=== PATIENT | female | born 1995 | race Caucasian/White ===

== ENCOUNTER 2018-07-23 14:26 | Inpatient (IN) | payer BC, OTHER ==
[~2018-07-23] VITALS: Ht 172.7 cm; Wt 63.5 kg
--- NOTE | 2018-07-23 17:50 | NUR ---
PREADMISSION Pt 23 y/o female admitted for etoh heroin methamphetamine withdrawal. Pt alert and oriented to name, place, and time. Perrla. Skin warm and moist to touch. Lung sounds clear bilaterally. Respirations even and unlabored. Appears disheveled and unkempt. Hair uncombed. Dirt under finger nails of both hands. The bottoms of both feet are covered with dirt. Ciwa=10 cows=8. CG=346/71 P=102 R=16 T=98.3 O2=96%ra. Explained unit rules to pt with acknowledgment.
--- NOTE | 2018-07-23 17:55 | NUR ---
ADMISSION Pt 23 y/o female admitted for etoh heroin methamphetamine withdrawal. Pt alert and oriented to name, place, and time. Perrla. Skin warm and moist to touch. Lung sounds clear bilaterally. Respirations even and unlabored. Appears disheveled and unkempt. Hair uncombed. Dirt under finger nails of both hands. The bottoms of both feet are covered with dirt. Ciwa=10 cows=8. JF=039/71 P=102 R=16 T=98.3 O2=96%ra. Pt came from sober living. States," I'm here because I want to live! I don't want to be a waste of space." Pt states, " I took on too many things at once." , further explaining," I started school and took too many classes. Then I bought a car so I can get to school. Then I needed supplies, food, etc, and so on. It all became overwhelming. So I turned to drugs." Pt states when she attempts to stop using substances on her own , it was unamanageable, and almost impossible, and states it's like"hell". Pt further explained when she attempted sobriety, she was surrounded with the wrong people. States her typical withdrawal signs are, " shakes, anxiety, chills, sweats, insomnia." Anxious and restless during assessment. Foot tapping and frequent position changes, from sitting on edge of chair, to the other edge of chair, and laying head on table. Hyperverbal with pressured speech. Irritable with responses, raising voice at times. Bilateral hand tremors. States is experiencing sweats. States has no pcp. aware with new orders for 5 day valium and 5 day subutex taper, both to begin on 07/24/18. 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 Stated," when I'm working as an escort, I start using heroin, meth, and alcohol more. It's when I try to get a job, I never make it to the job interviews, because I'm coming off these things. " Pt also stated has had legal issues regarding the heroin. States her only support is her mother and that even their relationship is drifting apart. Pt further explains that her mother seems exhausted with her multiple attempts at sobriety. Medical hx: Bipolar 2018 Substance hx: - vodka po 750mL/day x 2weeks ( 500mL/day x 6 months prior to current). Started @ 10 years old. Last used 750mL on 07/22/18 @1800 -heroin iv 1gm/ day x 1month. Started @16 years old. Last used 07/23/18 1gm @ 1400. -methamphetamine IV 0.5gm three times a week. Started @ 19 years old. Last used 07/23/18 @ 0200 0.5gm -Marijuana smoke 1 gm/ day x 1month. Started at 12 years old. Last used 1 gm on 07/23/18 @ 1500. Treatment hx: Sanjay 04/2018 Ivette 02/2018 [facility] 01/2018
[2018-07-23] MEDS ORDERED: THIAMINE HCL 200 MG/2 ML VIAL IM ONE (19:00)
[2018-07-23] MEDS ORDERED: DICYCLOMINE HCL 20 MG TABLET PO PRN (19:00)
[2018-07-23] MEDS ORDERED: LOPERAMIDE HCL 2 MG CAPSULE PO PRN ×2 (19:00)
[2018-07-23] MEDS ORDERED: ONDANSETRON 4 MG/2 ML VIAL IM PRN (19:00)
[2018-07-23] MEDS ORDERED: DIAZEPAM 5 MG TABLET PO PRN (19:00)
[2018-07-23] MEDS ORDERED: DIAZEPAM 10 MG TABLET PO PRN (19:00)
[2018-07-23] MEDS ORDERED: diphenhydrAMINE 50 MG CAPSULE PO PRN (19:00)
[2018-07-23] MEDS ORDERED: LORAZEPAM 2 MG/1 ML VIAL IM PRN (19:00)
[2018-07-23] MEDS ORDERED: MAGNESIUM HYDROXIDE 30 ML LIQUID UDC PO PRN (19:00)
[2018-07-23] MEDS ORDERED: BUPRENORPHINE HCL 2 MG TAB.SUBL SL PRN (19:00)
[2018-07-23] MEDS ORDERED: ONDANSETRON ODT 4 MG TAB.RAPDIS SL PRN (19:00)
[2018-07-23] MEDS ORDERED: CLONIDINE HCL 0.1 MG TABLET PO PRN (19:00)
[2018-07-23] MEDS ORDERED: MAG HYDROX/AL HYDROX/SIMETH 30 ML LIQUID UDC PO PRN (19:00)
[2018-07-23] MEDS ORDERED: FOLI1TAB16 PO (19:10)
[2018-07-23] MEDS ORDERED: HYDR50CA5 PO (19:10)
[2018-07-23] MEDS ORDERED: BUPR1FIL SL (19:10)
[2018-07-23] MEDS ORDERED: MULT1TAB73 PO (19:10)
[2018-07-23] MEDS ORDERED: CLON0.2T PO (19:10)
[2018-07-23] MEDS ORDERED: OXCA300T15 PO (19:10)
[2018-07-23] MEDS ORDERED: ONDA4TAB5 GT (19:10)
[2018-07-23] MEDS ORDERED: TRAZ300T2 PO (19:10)
[2018-07-23] MEDS ORDERED: NORE1TAB23 PO (19:10)
[2018-07-23] MEDS ORDERED: METH-406 PO (19:10)
--- NOTE | 2018-07-23 19:43 | NUR ---
START OF SHIFT Rcvd report from outgoing nurse. Pt is a 23 y/o female A/O to person, place, time, and purpose. Pt was admitted for medically supervised withdrawal from ETOH and Heroin. Pt was admitted 07/23 and was intoxicated upon admission. Pt presenting w/ anxiety, restlessness, flushing, hot flashes, chills, unkempt and disheveled appearance, and fine tremors. Pt also has a h/o methamphetamine use and states she has not slept in 4 days. Pt rcvd no PRN medications during previous shift. Last CIWA12 and COWS 12 @ 1600. Call light is within reach. Pt will continue to be monitored and needs met.
[2018-07-23 20:02] VITALS: BP 123/76
--- NOTE | 2018-07-23 20:03 | NUR ---
CIWA AND COWS ASSESSMENT CIWA 12 and COWS 12. Pt presenting w/ anxiety, restlessness, flushing, hot flashes, chills, unkempt and disheveled appearance, and fine tremors. V/S: T:98.2, P:99, RR:16, SPO2:100, BP:123/76.
[2018-07-23 20:17] LABS: BASOPHILS # (AUTO) 0.1 K/uL (0.0-8.0); BASOPHILS % (AUTO) 0.9 % (0.0-2.0); EOSINOPHILS % (AUTO) 0.4 % (0.0-7.0); HEMATOCRIT 38.2 % (31.2-41.9); HEMOGLOBIN 13.5 g/dL (10.9-14.3); LYMPHOCYTES # (AUTO) 3.3 K/uL (20.0-40.0); LYMPHOCYTES % (AUTO) 38.2 % (20.5-51.5); MEAN CORPUSCULAR HEMOGLOBIN 30.4 uug (24.7-32.8); MEAN CORPUSCULAR HGB CONC 35 g/dL (32.3-35.6); MEAN CORPUSCULAR VOLUME 85.9 fL (75.5-95.3); MONOCYTES # (AUTO) 0.9 K/uL (2.0-10.0); MONOCYTES % (AUTO) 9.9 % (0.0-11.0); NEUTROPHILS # (AUTO) 4.4 K/uL (1.8-8.9); NEUTROPHILS % (AUTO) 50.6 % (38.5-71.5); PLATELET COUNT (AUTO) 319 K/uL (179-408); RED BLOOD CELL COUNT(AUTO) 4.44 MIL/uL (3.63-4.92); WHITE BLOOD COUNT (AUTO) 8.7 K/uL (3.8-11.8)
[2018-07-23 20:17] LABS: *URINE HCG, QUAL NEGATIVE (NEGATIVE)
[2018-07-23 20:30] LABS: ALANINE AMINOTRANSFERASE 25 U/L (14-59); ALKALINE PHOSPHATASE 47 U/L (50-136); AMYLASE 39 U/L (25-115); ASPARTATE AMINOTRANSFERASE 19 U/L (15-37); BILIRUBIN,TOTAL 2.8 mg/dL (0.2-1.0); CARBON DIOXIDE 28 mmol/L (21-32); CHLORIDE 103 mmol/L (98-107); GLUCOSE 80 mg/dL (74-106); LIPASE 121 U/L (73-393); MAGNESIUM 1.8 mg/dL (1.8-2.4); POTASSIUM 3.7 mmol/L (3.5-5.1); UREA NITROGEN, BLOOD 13 mg/dL (7-18)
[2018-07-23 20:32] LABS: ETHANOL < 3 MG/DL (0-0)
[2018-07-23 20:45] LABS: *AMPHETAMINE, URINE POSITIVE (NEGATIVE); *BARBITURATE, URINE NEGATIVE (NEGATIVE); *CANNABINOID, URINE POSITIVE (NEGATIVE); *COCCAINE, URINE POSITIVE (NEGATIVE); *OPIATE, URINE POSITIVE (NEGATIVE); *PHENCYCLIDINE SCREEN,URINE NEGATIVE (NEGATIVE)
[2018-07-23 20:56] LABS: THYROID STIMULATING HORMONE 0.722 mIU/mL (0.358-3.740)
[2018-07-23] MEDS: DIAZEPAM 10 MG TABLET PO PRN (21:01)
[2018-07-23] MEDS: IBUPROFEN 600 MG TABLET PO PRN (21:01)
--- NOTE | 2018-07-23 21:02 | NUR ---
PRN VALIUM, BENADRYL, CLONIDINE, AND MOTRIN ADMINISTRATION Valium 10mg for CIWA of 12, Benadryl 50mg for sleep, Clonidine 0.1mg for anxiety, and Motrin 600mg for body aches were given. Will reassess pt in 1 hr.
--- NOTE | 2018-07-23 22:02 | NUR ---
PRN VALIUM, BENADRYL, CLONIDINE, AND MOTRIN REASSESSMENT Pt is in bed w/ her eyes closed. Pt's respirations are unlabored and even.
--- NOTE | 2018-07-24 00:06 | NUR ---
CIWA AND COWS DEFERRED Pt is in bed w/ her eyes closed. Pt's respirations are unlabored and even.
--- NOTE | 2018-07-24 04:11 | NUR ---
CIWA AND COWS DEFERRED Pt is in bed w/ her eyes closed. Pt's respirations are unlabored and even.
--- NOTE | 2018-07-24 07:22 | NUR ---
END OF SHIFT Endorsed pt to oncoming nurse. Pt is a 23 y/o female A/O to person, place, time, and purpose. Pt was admitted for medically supervised withdrawal from ETOH and Heroin. Pt to begin 5 day Valium and Subutex taper on 07/24.. Pt continued presenting w/ anxiety, restlessness, flushing, hot flashes, chills, unkempt and disheveled appearance, and fine tremors. Pt also has a h/o methamphetamine use and states she has not slept in 4 days. Pt denies any S/I or H/I. PRN Valium for CIWA of 12, Benadryl for sleep, Clonidine for anxiety, and Motrin for body aches were given and noted effective. Pts fluid intake was 1419ml and she slept for 9hrs. Last CIWA12 and COWS 12 @ 1999. Call light is within reach.
[2018-07-24 08:00] VITALS: BP 116/71
--- NOTE | 2018-07-24 08:00 | NUR ---
START OF SHIFT COWS CIWA ASSESSMENT Pt 23 y/o female admitted for etoh heroin meth withdrawal. Pt received in room on bed with eyes closed resting, but arousable to name. Pt alert and oriented to name, place, and time. Perrla. Skin warm and moist to touch. Respirations even and unlabored. Appears disheveled and unkempt. Clothes and food wrappings scattered throughout the room. Encouraged to maintain hygiene. Cows=12 ciwa=12 @0800. Anxious and restless. Pressured speech. Irritable and agitated. Bilateral hand tremors noted. Complaints of intermittent perspiration and chills. Also with complaints of generalized discomfort. It was reported that pt slept for 9 hours last night. Pt is on a 5 day valium and a 5 day subutex taper, both on day 1. Last cows=12 ciwa=12 @1999. Bed on lowest position with side rails x2 up for safety. Call light within reach.
[2018-07-24] MEDS: FOLIC ACID 1 MG TABLET PO SCH (08:58)
[2018-07-24] MEDS: DIAZEPAM 10 MG TABLET PO SCH ×3 (08:58→20:47)
[2018-07-24] MEDS: MULTIVITAMINS,THERAPEUTIC TABLET PO SCH (08:58)
[2018-07-24] MEDS: THIAMINE HCL 100 MG TABLET PO SCH (08:58)
[2018-07-24] MEDS: BUPRENORPHINE HCL 2 MG TAB.SUBL SL SCH ×4 (08:59→20:48)
[2018-07-24] MEDS ORDERED: 5 DAY TAPER VALIUM-SERENITY PROTOCOL PO PRN (09:00)
[2018-07-24] MEDS ORDERED: 5 DAY TAPER BUPRENORPHINE -SERENITY PROTOCOL SL PRN (09:00)
[2018-07-24] MEDS ORDERED: TUBERCULIN,PURIF.PROT.DERIV. 5 TU/0.1 ML TEST ID ONE (09:00)
[2018-07-24 12:00] VITALS: BP 110/60
[2018-07-24] MEDS: IBUPROFEN 600 MG TABLET PO PRN ×2 (12:44→20:47)
[2018-07-24] MEDS: METHOCARBAMOL 750 MG TABLET PO PRN (12:44)
[2018-07-24] MEDS: DIAZEPAM 10 MG TABLET PO PRN (12:44)
--- NOTE | 2018-07-24 12:47 | NUR ---
PRN ROBAXIN MOTRIN Complaints of body aches 03/16 and generalized pain 02/14. Motrin po prn per MD order given. Robaxin po prn per MD order given. Addendum: 07/24/18 at 1300 by RONNIE GRAY RN additional ciwa =12. Bilateral hand tremors noted. Anxious and restless. Pressured speech. Irritable and agitated. Complaints of generalized body pains. Valium 10mg po prn per MD order given.
[2018-07-24 16:00] VITALS: BP 105/63
--- NOTE | 2018-07-24 16:00 | NUR ---
COWS CIWA ASSESSMENT cows=11 ciwa=12. Anxious and restless. Pressured speech. Bilateral hand tremors noted. Irritable. Not able to lay still. Complaints of intermittent perspiration and chills. Complaints of generalized discomfort.
[2018-07-24] MEDS: OXCARBAZEPINE 300 MG TABLET PO SCH (16:14)
[2018-07-24] MEDS ORDERED: NEOMY/BACITRA/POLYMYXIN B OINT UD PACKET TP PRN (16:45)
[2018-07-24] MEDS ORDERED: NEOMY/BACITRAC/POLYMI OINT 28.35 GM TUBE TP PRN (17:30)
--- NOTE | 2018-07-24 18:38 | NUR ---
END OF SHIFT Pt 23 y/o female admitted for etoh heroin meth withdrawal. Pt alert and oriented to name, place, and time. Perrla. Skin warm and moist to touch. Respirations even and unlabored. Appears disheveled and unkempt. Hair uncombed. Food and empty drink bottles scattered throughout the room. Encouraged to maintain hygiene. Anxious and restless. Pressured speech. Bilateral hand tremors noted. Fidgety. Pacing. Hyperverbal. Complaints of generalized discomfort. Isolative to room with no peer interaction. Pt did not attend group activity. Last cows=10 ciwa=11 @1600. Pt is on a 5 day valium taper and is on day 1. Pt also on 5 day subutex taper and is on day 1. Bed on lowest position with side rails x2 up for safety. Call light within reach.
--- NOTE | 2018-07-24 19:30 | NUR ---
Start of shift note Received report from day shift nurse. Patient is a 23 year old female admitted for ETOH and Heroin withdrawal . Patient is on 5 day Subutex and 5 day Valium taper. Patient was given PRN Valium. X-ray was done due to back pain. X-ray result was negative. Last COWS 11 and CIWA 10. Patient in group at this time. Patient's room dirty and odorous. Safety measures in place. Will continue to monitor
[2018-07-24 20:00] VITALS: BP 119/88
--- NOTE | 2018-07-24 20:00 | NUR ---
COWS and CIWA assessment Patient reports anxiety, restlessness, restless legs, runny nose, abdominal cramping, back pain, muscle aches, headache, hot and cold sweats. COWS 14 and CIWA 12.
[2018-07-24] MEDS: TRAZODONE 100 MG TABLET PO SCH (20:47)
--- NOTE | 2018-07-24 20:47 | NUR ---
PRN Motrin administration Patient c/o back pain and headache. Will monitor for effectiveness
--- NOTE | 2018-07-24 21:47 | NUR ---
PRN Motrin re-assessment Patient reports relief from Motrin. Patient states she feels much better.
[2018-07-25] VITALS: BP 124/72
--- NOTE | 2018-07-25 | NUR ---
COWS and CIWA deferred Patient lying in bed with eyes closed. Respiration even and unlabored. Will continue to monitor.
[2018-07-25 04:00] VITALS: BP 110/70
--- NOTE | 2018-07-25 04:00 | NUR ---
COWS and CIWA deferred Patient lying in bed with eyes closed. Respiration even and unlabored. Will continue to monitor.
--- NOTE | 2018-07-25 07:21 | NUR ---
End of shift note Patient slept 6 hours. Fluid intake 1,799 ml. Voided x 4. No BM. Scheduled taper and medication given as ordered, tolerated well and no adverse reaction noted. Patient compliant with medication and treatment plan. Patient socializes with other resident and staff. Patient was given PRN Motrin. Safety measures in place. Will continue to monitor. Last COWS 14 and CIWA 12.
--- NOTE | 2018-07-25 07:30 | NUR ---
START OF SHIFT Endorse rcvd from ongoing nurse, client is in room, lying on her L side, she sounds asleep, easy to awaken, RR 16, even, non-labored. Client is admitted for medically supervised alcohol and opioid withdrawal. Last CIWA 14 @ 1999. PRN Motrin 600mg PO for body aches, she slept 6 hrs. Call light within reach. Will continue to monitor.
[2018-07-25 07:51] LABS: CREATININE 0.6 mg/dL (0.6-1.3); POTASSIUM 3.9 mmol/L (3.5-5.1); TOTAL PROTEIN, SERUM 6.1 g/dL (6.4-8.2)
[2018-07-25 08:04] VITALS: BP 94/60
[2018-07-25] MEDS: THIAMINE HCL 100 MG TABLET PO SCH (09:41)
[2018-07-25] MEDS: FOLIC ACID 1 MG TABLET PO SCH (09:41)
[2018-07-25] MEDS: MULTIVITAMINS,THERAPEUTIC TABLET PO SCH (09:41)
[2018-07-25] MEDS: BUPRENORPHINE HCL 2 MG TAB.SUBL SL SCH ×3 (09:41→22:05)
[2018-07-25] MEDS: OXCARBAZEPINE 300 MG TABLET PO SCH ×2 (09:41→16:12)
[2018-07-25] MEDS: DIAZEPAM 5 MG TABLET PO SCH ×4 (09:41→22:05)
--- NOTE | 2018-07-25 09:41 | NUR ---
CIWA 14 / 14 Client is in room, she is a/o x 4, she presents with anxious mood, flat affect, flushed facial skin, enlarged pupils, and difficulty concentrating. Client report abdominal cramps, agitation, anxiety, chills, clammy skin, difficulty thinking clearly, fatigue, tremors, inability to sleep, generalized body aches, restless legs, and runny nose. Schedule Valium 5mg PO, Subutex 4mg SL administered. Will continue to monitor. Call light within reach.
[2018-07-25 12:55] VITALS: BP 98/59
--- NOTE | 2018-07-25 13:14 | NUR ---
CIWA /COWS deferred client too sedated to assess. Valium 4mg PO help. MD and CN notified.
--- NOTE | 2018-07-25 14:46 | NUR ---
Therapist prompted client to attend group therapy sessions.
[2018-07-25 16:17] VITALS: BP 102/65
--- NOTE | 2018-07-25 19:35 | NUR ---
END OF SHIFT Endorse client to incoming nurse, client is in room, a/o x 4. Client continues to present with anxious mood, flat affect, agitation, flushed facial skin, difficulty concentrating, yawning, runny nose, and watery eyes. Client is on 2nd of 5 day Valium / 5 day Subutex taper. Last CIWA 14 / 14 @ 1600. Client does not attend group therapy, but is compliant with medication taper medication. Client consumed 50% of meals. Adequate PO fluid intake 1800mL, void x 2. Ophelia precautions. Call light within reach.
--- NOTE | 2018-07-25 19:41 | NUR ---
START OF SHIFT NOTE Rcvd report from outgoing nurse. Pt is a 23 y/o female A/O to person, place, time, and purpose. Pt was admitted for medically supervised withdrawal from ETOH and Opiates. Pt is on day 2 of a 5 day Subutex and Valium taper. Pt has been presenting w/ lethargy, flushing, sweats, fine tremors, and anxiety. Pt has spent the majority of the day in her room in bed. Pt rcvd no PRN medications during previous shift. Last CIWA 14 and COWS 14 @ 1600. Call light is within reach. Pt will continue to be monitored and need met.
[2018-07-25 20:11] VITALS: BP 92/53
--- NOTE | 2018-07-25 20:15 | NUR ---
CIWA AND COWS ASSESSMENT CIWA 12 and COWS 12. Pt has been presenting w/ lethargy, flushing, sweats, fine tremors, and anxiety. V/S: T:98.1, P:83, RR:16, SPO2:97, BP:92/53
[2018-07-25] MEDS: TRAZODONE 100 MG TABLET PO SCH (22:05)
--- NOTE | 2018-07-26 00:06 | NUR ---
CIWA AND COWS DEFERRED Pt is in bed w/ her eyes closed. Pt's respirations are unlabored and even.
--- NOTE | 2018-07-26 04:12 | NUR ---
CIWA AND COWS DEFERRED Pt is in bed w/ her eyes closed. Pt's respirations are unlabored and even.
--- NOTE | 2018-07-26 07:11 | NUR ---
END OF SHIFT NOTE Endorsed pt to oncoming nurse. Pt is a 23 y/o female A/O to person, place, time, and purpose. Pt was admitted for medically supervised withdrawal from ETOH and Opiates. Pt completed day 2 of a 5 day Subutex and Valium taper. Pt continued presenting w/ lethargy, flushing, sweats, fine tremors, and anxiety. Pt has spent the majority of the shift in her room in bed. Pt denies any S/I or H/I. Pt rcvd no PRN medications during shift. Pt's fluid intake was 355ml and she slept for 11hrs. Last CIWA 12 and COWS 12 @ 1999. Call light is within reach.
--- NOTE | 2018-07-26 07:30 | NUR ---
start of shift note: received pt from night stocker nurse, pt is in stable condition at this time no s/s of pain or discomfort at this time, pt is admitted to [facility] for opiate/benzo/meth withdrawal/dependence. pt's last documented cows 12 and ciwa 12, pt slept for 11 hours. will continue to monitor pt for any changes and continue to meet pt's needs
[2018-07-26] MEDS ORDERED: BUPRENORPHINE HCL 2 MG TAB.SUBL SL SCH (09:00)
--- NOTE | 2018-07-26 09:00 | NUR ---
cows/ciwa: 11 and 6 pt is noted with moderate body aches and nasal stuffiness, pt with an episode of yawing and irritability.
[2018-07-26] MEDS: FOLIC ACID 1 MG TABLET PO SCH (09:01)
[2018-07-26] MEDS: THIAMINE HCL 100 MG TABLET PO SCH (09:01)
[2018-07-26] MEDS: MULTIVITAMINS,THERAPEUTIC TABLET PO SCH (09:01)
[2018-07-26] MEDS: OXCARBAZEPINE 300 MG TABLET PO SCH ×2 (09:01→17:00)
[2018-07-26] MEDS: DIAZEPAM 5 MG TABLET PO SCH ×3 (09:02→20:22)
[2018-07-26 11:00] VITALS: BP 100/64
[2018-07-26 12:42] VITALS: BP 110/60
--- NOTE | 2018-07-26 13:00 | NUR ---
COWS AND CIWA: 9 and 6, pt is in and out of sleep, mild sweats and body aches noted with 89 heart rate.
[2018-07-26] MEDS: BUPRENORPHINE HCL 2 MG TAB.SUBL SL SCH ×2 (15:00→20:23)
[2018-07-26 15:07] LABS: HEPATITIS B SURFACE AG Negative (Negative)
[2018-07-26 18:31] VITALS: BP 112/66
--- NOTE | 2018-07-26 18:37 | NUR ---
end of shift note: pt is in stable condition at this time, pt is sleeping pt is inactive and has been sleeping in bed majority of the shift, pt did not receive 1500 and 1700 medications. pt is odorous and disheveled and has not left her room throughout the shift. last documented cows and ciwa is 9 and 6, pt has a resting heart rate of 80-90's. pt has a poor PO intake, will encourage pt to join activities and groups. will endorse pt to maintenance supervisor 2nd shift nurse.
--- NOTE | 2018-07-26 19:30 | NUR ---
Start of shift note Received report from day shift nurse. Patient is a 23 year old female admitted for ETOH and Opiate withdrawal. Patient was sleeping most of the day. Patient did not receive PRN medication . Last COWS 9 and CIWA 6. Patient is anxious, restless, irritable and agitated. Patient wants to go down to smoke. Patient's room dirty, garbage around, dirty linen, refused change and clothes thrown on floor. Patient is disheveled and odorous. Safety measures in place. Will continue to monitor.
[2018-07-26 20:00] VITALS: BP 123/96
--- NOTE | 2018-07-26 20:00 | NUR ---
COWS and CIWA assessment Patient reports increased anxiety, restlessness, irritable, agitation, abdominal cramping, stuffy nose and intermittent perspiration COWS 11 and CIWA 9
--- NOTE | 2018-07-26 20:12 | NUR ---
MEG Poe and Vistaril administration Patient reports anxiety and c/o generalized body aches . Will monitor effectiveness Addendum: 07/27/18 at 0348 by MAURICE ROBBINS LVN error:this charting is for another patient
[2018-07-26] MEDS: TRAZODONE 100 MG TABLET PO SCH (20:22)
[2018-07-26] MEDS: METHOCARBAMOL 750 MG TABLET PO PRN (20:22)
--- NOTE | 2018-07-26 20:22 | NUR ---
PRN Robaxin administration Patient was c/o back. Will monitor for effectiveness
--- NOTE | 2018-07-26 21:22 | NUR ---
PRN Robaxin re-assessment Patient states Robaxin was helpful and effective. Pain is lessened. Will continue to monitor
[2018-07-27] VITALS: BP 114/75
--- NOTE | 2018-07-27 | NUR ---
COWS and CIWA deferred Patient lying in bed with eyes closed. Respiration even and unlabored. Will continue to monitor
[2018-07-27 04:00] VITALS: BP 112/77
--- NOTE | 2018-07-27 04:00 | NUR ---
COWS and CIWA deferred Patient lying in bed with eyes closed. Respiration even and unlabored. Will continue to monitor
--- NOTE | 2018-07-27 07:17 | NUR ---
End of shift note Patient alert and oriented x 4. Patient was anxious, restless, irritable and agitated. Patient compliant with medication . Patient was c/o back pain. PRN Robaxin was given. Patient was asleep most of the shift. Will continue to monitor. Patient slept 8 hours. Fluid intake 1,402 ml. Voided x 5 . BM x 1 . Last COWS 11 and CIWA 9
[2018-07-27 08:00] VITALS: BP 96/60
--- NOTE | 2018-07-27 08:02 | NUR ---
START OF SHIFT: Received Pt laying in bed with eyes closed. She is easy to awake and states "please let me sleep some more, and come back in a little while". Will attempt to assess Pt later and medicate as ordered. Bed locked and low. Call gonzalez in reach. Will continue to monitor and offer support.
[2018-07-27] MEDS: FOLIC ACID 1 MG TABLET PO SCH (09:00)
[2018-07-27] MEDS: MULTIVITAMINS,THERAPEUTIC TABLET PO SCH (09:00)
[2018-07-27] MEDS: DIAZEPAM 5 MG TABLET PO SCH ×2 (09:00→20:08)
[2018-07-27] MEDS: BUPRENORPHINE HCL 2 MG TAB.SUBL SL SCH ×3 (09:00→21:57)
[2018-07-27] MEDS: THIAMINE HCL 100 MG TABLET PO SCH (09:00)
[2018-07-27] MEDS: OXCARBAZEPINE 300 MG TABLET PO SCH ×2 (09:00→16:49)
--- NOTE | 2018-07-27 10:15 | NUR ---
COWS and CIWA deferred. AM medications held as pt is asleep. made aware. Safety measures in place.Will continue to monitor.
[2018-07-27 12:00] VITALS: BP 96/60
--- NOTE | 2018-07-27 13:00 | NUR ---
Pt continues to sleep and asked to be left alone.Safety measures in place. Will continue to monitor and offer support. Addendum: 07/27/18 at 1836 by TRISTAN SAHA RN Jhony leach at noon.
--- NOTE | 2018-07-27 15:45 | NUR ---
Pt is A/O X 4. She presents disheveled with smeared make up on face and she is odorous. Encouraged a shower to promote wellness. She reports body aches,fatigue and irritability. COWS 6 CIWA 7. Will administer medications as ordered.
[2018-07-27 16:00] VITALS: BP 101/60
[2018-07-27] MEDS: IBUPROFEN 600 MG TABLET PO PRN (16:49)
--- NOTE | 2018-07-27 18:36 | NUR ---
END OF SHIFT: Pt continues on Valium/Subutex taper to manage s/s of w/d. She slept until after 3 pm so am meds were held and COWS and CIWA deferred X 2. Last COWS 6 CIWA 7. She was medicated with Subutex as ordered this afternoon and showered as encouraged. She reported fatigue and body aches. Will pass shift report to oncoming night nurse.
--- NOTE | 2018-07-27 19:30 | NUR ---
Start of shift note Received report from day shift nurse. Patient is a 23 year old admitted for ETOH and Opiate withdrawal. Patient is 4th day of her 5 day Valium and 5 day Subutex taper. Patient was asleep most of the day. She did not require PRN medication. Last COWS 6 and CIWA 7. Patient in bed resting. Patient is c/o generalized body aches. Patient appears somnolent. Patient is disheveled and odorous. Room is dirty, garbage around room and clothes thrown on floor. Safety measures in place. Will continue to monitor.
[2018-07-27 20:00] VITALS: BP 111/61
--- NOTE | 2018-07-27 20:00 | NUR ---
COWS and CIWA assessment Patient states increased anxiety , agitation , irritability , sweating and generalized body aches. COWS 7and CIWA 8
[2018-07-27] MEDS: METHOCARBAMOL 750 MG TABLET PO PRN (20:08)
--- NOTE | 2018-07-27 20:08 | NUR ---
PRN Robaxin administration Patient c/o generalized body aches. Will monitor for effectiveness
[2018-07-27] MEDS: TRAZODONE 100 MG TABLET PO SCH (20:09)
--- NOTE | 2018-07-27 21:08 | NUR ---
PRN Robaxin re-assessment Patient states Robaxin is helpful and effective. Pain is lessened.
[2018-07-28] VITALS: BP 102/64
--- NOTE | 2018-07-28 | NUR ---
COWS and CIWA deferred Patient lying in bed with eyes closed. Respiration even and unlabored. Will continue to monitor.
[2018-07-28 04:00] VITALS: BP 112/60
--- NOTE | 2018-07-28 04:00 | NUR ---
COWS and CIWA deferred Patient lying in bed with eyes closed. Respiration even and unlabored. Will continue to monitor.
[2018-07-28 06:05] LABS: *GC NAA Negative (Negative); *TRIC.VAG. NAA Negative (Negative)
--- NOTE | 2018-07-28 07:11 | NUR ---
End of shift note Patient alert and oriented x 4. Patient scheduled medication and taper given as ordered, tolerated well. Patient asleep most of the shift. Patient went down to smoke once. Patient c/o generalized body ache. PRN Robaxin was given at 2007., effective. Safety measures in place. Will continue to monitor. Patient slept 9 hours. Fluid intake 500 ml. Voided x 1. No BM. Last COWS 7 and CIWA 8.
[2018-07-28 08:00] VITALS: BP 98/60
--- NOTE | 2018-07-28 08:25 | NUR ---
START OF SHIFT: Received Pt laying in bed A/O x 4. She is disheveled and her room is in disarray. She refused to sit up to take medications. Insisted she sit up not to choke while swallowing meds. She became irritated but complied. She reports mild body aches ,fatigue and anxiety. COWS 4 CIWA 4. Encouraged a shower and group attendance to improve coping skills and prevent relapse. Will continue to monitor and offer support.
[2018-07-28] MEDS ORDERED: BUPRENORPHINE HCL 2 MG TAB.SUBL SL SCH (09:00)
[2018-07-28] MEDS ORDERED: DIAZEPAM 5 MG TABLET PO SCH (09:00)
[2018-07-28] MEDS: MULTIVITAMINS,THERAPEUTIC TABLET PO SCH (09:56)
[2018-07-28] MEDS: OXCARBAZEPINE 300 MG TABLET PO SCH ×2 (09:57→17:00)
[2018-07-28] MEDS: FOLIC ACID 1 MG TABLET PO SCH (09:57)
[2018-07-28] MEDS: THIAMINE HCL 100 MG TABLET PO SCH (09:57)
[2018-07-28 12:00] VITALS: BP 108/61
--- NOTE | 2018-07-28 13:01 | NUR ---
COWS and CIWA deferred. She is sleeping with respirations even and unlabored. Bed locked and low. Call gonzalez in reach. Will continue to monitor and offer support.
[2018-07-28] MEDS ORDERED: METH-406 PO (15:04)
[2018-07-28] MEDS ORDERED: IBUP-1955 PO (15:04)
[2018-07-28] MEDS ORDERED: TRAZ-214 PO (15:04)
[2018-07-28] MEDS ORDERED: CLON0.1T14 PO (15:04)
[2018-07-28] MEDS ORDERED: OXCA300T4 PO (15:04)
[2018-07-28] MEDS ORDERED: DIPH50CA37 PO (15:04)
[2018-07-28] MEDS ORDERED: HYDR-3895 PO (15:04)
[2018-07-28] MEDS ORDERED: ONDA4TAB11 SL (15:04)
[2018-07-28 16:00] VITALS: BP 126/77
--- NOTE | 2018-07-28 18:41 | NUR ---
COWS and CIWA deferred. She is sleeping. Respirations even and unlabored. Meds held. Will continue to monitor and offer support.
--- NOTE | 2018-07-28 19:28 | NUR ---
END OF SHIFT: Pt continues on Valium/Subutex taper to manage s/s of w/d. She slept most of shift after morning meds were administered.COWS and CIWA deferred X 2. Afternoon meds held. made aware. Will pass shift report to oncoming night nurse.
--- NOTE | 2018-07-28 19:30 | NUR ---
Start of Shift Patient Received. Per endorsement, patient is a 23 year old female currently receiving a modified 5 day Valium and 5 day Subutex taper for ETOH and Opiate Withdrawal. Patient has been noted to be isolative to room, non compliant with group and social activities. She is been noted to be drowsy during medication administration, and noted to be sleep throughout morning shift. No PRN medications administered. Last noted CIWA 9 and COWS 4 which were completed at 0900. Upon rounds patient is noted in bed with eyes closed, Breathing even and non labored. Room is odorous, bed side table is noted to be cluttered with food, drinks, and trash. All needs attended to promptly. Will continue to monitor.
--- NOTE | 2018-07-28 20:00 | NUR ---
CIWA Assessment patient is noted in bed, awake, alert. patient is noted to be restless, frequently shifting in position, anxious, verbalizing increased sweats, and body aches. encouraged patient to attempt to get out of bed, drink fluids, snack on food as tolerated. patient verbalized understanding. Upon exiting the room patient is noted to easily fall back to sleep with no complications noted. Will continue to monitor.
[2018-07-28 20:24] VITALS: BP 118/73
[2018-07-28] MEDS: TRAZODONE 100 MG TABLET PO SCH (22:34)
[2018-07-28] MEDS: HYDROXYZINE PAMOATE 25 MG CAPSULE PO PRN (22:35)
--- NOTE | 2018-07-28 22:35 | NUR ---
PRN Medication Administration patient is noted awake and requesting for sleep medication. She verbalizes "I'm anxious and I'm having a hard time falling back to sleep." PRN Vistaril administered. Will continue to monitor.
--- NOTE | 2018-07-28 23:30 | NUR ---
PRN Medication Reassessment Patient is noted in bed with eyes closed. Breathing even and non labored. no signs of restlessness or facial grimacing noted. PRN Vistaril noted to be effective. Will continue to monitor.
--- NOTE | 2018-07-29 00:30 | NUR ---
CIWA, COWS, and Vitals Patient is noted in bed with eyes closed. breathing even and non labored. No signs of facial grimacing or restlessness noted. Vitals Refused. CIWA and COWS not able to be completed as per order. Will continue to monitor.
--- NOTE | 2018-07-29 04:20 | NUR ---
Vitals, COWS, and CIWA Patient is noted in bed with eyes closed. Breathing even and non labored. No signs of restlessness or facial grimacing noted. CIWA and COWS not able to be completed. Will continue to monitor.
--- NOTE | 2018-07-29 07:14 | NUR ---
End of Shift Patient is noted in bed with eyes closed. Breathing even and non labored. Patient continues on a modified 5 day Valium and 5 day Subutex taper for ETOH and Opiate Withdrawal. Patient has been noted to be isolative to room, non compliant with group and social activities. Patient received PRN Vistaril with medication noted to be effective. Patient noted to sleep a total of 9 hours. Last noted COWS 6 and CIWA 9. All needs attended to promptly. Will endorse to continue plan of care as ordered.
--- NOTE | 2018-07-29 08:01 | NUR ---
BEGINNING OF SHIFT Patient received awake, alert and oriented x4, educated regarding plan of care for the day and medication regimen with good verbal understanding. Patient endorsement report received from night supervisor nurse, all pertinent information was discussed. Patient with admitting Dx: eoth/Opiate withdrawal. Patient with ongoing 5 day Valium taper and 5 day Subutex taper as ordered. continues under close observation. Per night supervisor patient received: Vistaril, last CIWA score of: 9, last COW score of: 6, and slept for 10 hours. Responsive to verbal stimuli. safety measures in place. call light kept with in reach, will continue to monitor.
[2018-07-29 08:25] VITALS: BP 92/62
[2018-07-29] MEDS: THIAMINE HCL 100 MG TABLET PO SCH (08:32)
[2018-07-29] MEDS: FOLIC ACID 1 MG TABLET PO SCH (08:32)
[2018-07-29] MEDS: MULTIVITAMINS,THERAPEUTIC TABLET PO SCH (08:33)
[2018-07-29] MEDS: OXCARBAZEPINE 300 MG TABLET PO SCH ×2 (08:33→17:31)
--- NOTE | 2018-07-29 09:00 | NUR ---
COW/CIWA ASSESSMENT Noted exhibiting the following s/sx of withdrawal: c/o chills, difficultly sitting still, enlarged pupils, mild bone and joint aches, and anxiety,current COW score of: 6. And last CIWA score of: 8.
[2018-07-29 13:16] VITALS: BP 93/59
--- NOTE | 2018-07-29 13:30 | NUR ---
COW/CIWA ASSESSMENT Continues to exhibit the following s/sx of withdrawal: c/o chills, difficultly sitting still, enlarged pupils, mild bone and joint aches, and anxiety,current COW score of: 6. And last CIWA score of: 8. will continue to monitor.
[2018-07-29 16:42] VITALS: BP 103/62
--- NOTE | 2018-07-29 16:45 | NUR ---
COW/CIWA ASSESSMENT Noted exhibiting the following s/sx of withdrawal: c/o chills, enlarged pupils, mild bone and joint aches, and anxiety, elevated heart rate, last COW score of: 6. And current CIWA score of: 7.
--- NOTE | 2018-07-29 17:48 | NUR ---
ENDORSED CARE/END OF SHIFT Patient continues under close observation, endorsed to staff nurse, all pertinent information was discussed. Patient completed Valium and Subutex taper as ordered. Noted exhibiting the following s/sx of withdrawal: c/o chills, difficultly sitting still, enlarged pupils, mild bone and joint aches, and anxiety, elevated heart rate, last COW score of: 6. And last CIWA score of: 8. Received no PRN medications during shift. Encouraged to participate in group therapies/sessions to learn new coping skills to prevent relapse. Patient encouraged adequate PO fluid intake as tolerated. Patient appears disheveled, odorous, unkempt hair/uncombed hair. Patient has clothes thrown on floor and empty water bottles/candy wrappers, encouraged patient to self groom and maintenance of personal space. Patient has flat affect with depressed/anxious mood. Encouraged utilization of non pharmacological interventions. Patients safety measures are in place. Encouraged to attend group therapies/sessions to learn new coping skills to prevent relapse. Will continue to monitor.
--- NOTE | 2018-07-29 19:01 | NUR ---
End of Shift Pt. is a 23 y/o female admitted for the medically managed withdrawal from ETOH and Opiates. Pt. was placed on 5 day valium and Subutex tapers to managed with withdrawal symptoms which she completed this AM. Pt. remained in her room for the majority of the shift. No signs on acute distress noted. Safety measures in place. Will endorse pt.s care to oncoming shift.
--- NOTE | 2018-07-29 19:30 | NUR ---
Start of Shift Patient Received. Per endorsement patient is a 23 year old female that completed a 5 day Valium and 5 day Subutex taper for ETOH and Opiate withdrawal. Patient is set for discharge tomorrow 07/30/18 to [facility]. She continues to be isolative to room and non compliant with group or social activities. No PRN medications administered. Last noted COWS 6 and CIWA 7. Upon rounds, patient is noted in bed with eyes closed but is easily awakened upon entering the room. Patient is noted to be drowsy and answers with one word answers. Encouraged fluids and snacks as tolerated. Patient verbalized understanding. All needs attended to promptly. Will continue plan of care as ordered.
[2018-07-29 20:30] VITALS: BP 109/65
--- NOTE | 2018-07-29 20:30 | NUR ---
COWS and CIWA Assessment patient continues to be monitored for increased signs and symptoms of withdrawal. She is noted with increased anxiety, restlessness, irritability, intermittent chills and sweats, tremulous to touch, and insomnia. Will administer medications accordingly.
[2018-07-29] MEDS: TRAZODONE 100 MG TABLET PO SCH (21:17)
[2018-07-29] MEDS: HYDROXYZINE PAMOATE 25 MG CAPSULE PO PRN (21:17)
--- NOTE | 2018-07-29 21:21 | NUR ---
PRN Medication Administration Patient is noted verbalizing increased anxiety and restlessness. PRN Vistaril administered with routine medication. Will continue to monitor.
--- NOTE | 2018-07-29 22:20 | NUR ---
PRN Medication Reassessment Patient is noted in bed with eyes closed. Breathing even and non labored. No signs of restlessness or facial grimacing noted. PRN Vistaril noted to be effective.
--- NOTE | 2018-07-30 00:49 | NUR ---
COWS, CIWA, and Vitals Patient is noted in bed with eyes closed. Breathing even and non labored. Vitals Refused. CIWA and COWS not able to be completed as per order. Will continue to monitor.
--- NOTE | 2018-07-30 04:30 | NUR ---
COWS, CIWA, and Vitals Patient is noted in bed with eyes closed. Breathing even and non labored. No signs of restlessness or facial grimacing noted. Patient noted to refuse Vitals. CIWA and COWS not able to be completed as per order. Will continue to monitor.
--- NOTE | 2018-07-30 07:13 | NUR ---
End of Shift Patient is noted in bed with eyes closed. Breathing even and non labored. She completed on a 5 day Valium and 5 day Subutex taper for ETOH and Opiate withdrawal. Patient is set for discharge today 07/30/18 to [facility]. She continues to be isolative to room and non compliant with group or social activities. PRN Vistaril administered for increased anxiety with medication noted to be effective. Patient noted to sleep a total of 9 hours. Last noted CIWA 6 and COWS 6. All needs attended to promptly. Will endorse to continue plan of care as ordered.
[2018-07-30 08:00] VITALS: BP 100/66
--- NOTE | 2018-07-30 08:05 | NUR ---
START OF SHIFT: Received Pt laying in bed a/o x 4. She presents disheveled with irritable mood and congruent affect. She reports feeling aggravated and wants to continue sleeping. Encouraged her to wake up and take her medications and shower for scheduled discharge this morning. She took meds but states she will shower later. CIWA 6 COWS 2. Will continue with discharge process.
[2018-07-30] MEDS: OXCARBAZEPINE 300 MG TABLET PO SCH (09:08)
[2018-07-30] MEDS: FOLIC ACID 1 MG TABLET PO SCH (09:08)
[2018-07-30] MEDS: THIAMINE HCL 100 MG TABLET PO SCH (09:08)
[2018-07-30] MEDS: MULTIVITAMINS,THERAPEUTIC TABLET PO SCH (09:08)
--- NOTE | 2018-07-30 10:02 | NUR ---
DISCHARGE: Pt is A/O X 4.She is medically cleared per MD for discharge. She denies S/I and H/I. She did not shower before leaving and presents disheveled and odorous.Educated her on discharge instructions and medications. She expressed verbal understanding of education. Belongings returned. [facility] escorted pt to [facility] where she was transported by [facility] to [facility] at [id number].
== END 2018-07-30 09:43 | disposition other institution (70) | DRG 895 ==
LOC: SRC 16:48
PROVIDERS: ADMIT Family Medicine Addiction Medicine; ATTEND Family Medicine Addiction Medicine
PROC: HZ2ZZZZ Detoxification Services for Substance Abuse Treatment (ICD-10-PCS; principal; 2018-07-23)
PROC: HZ31ZZZ Individual Counseling for Substance Abuse Treatment, Behavioral (ICD-10-PCS; 2018-07-25)
DX: F10.230 Alcohol dependence with withdrawal, uncomplicated (principal); E87.1 Hypo-osmolality and hyponatremia; F31.60 Bipolar disorder, current episode mixed, unspecified; F11.23 Opioid dependence with withdrawal; Y90.9 Presence of alcohol in blood, level not specified; F12.10 Cannabis abuse, uncomplicated; E88.09 Other disorders of plasma-protein metabolism, not elsewhere classified; Z79.899 Other long term (current) drug therapy; I95.9 Hypotension, unspecified; N89.8 Other specified noninflammatory disorders of vagina; R30.0 Dysuria; Z72.51 High risk heterosexual behavior
CPT/HCPCS: 36415; 71101; 80307; 80324; 80349; 80353; 80361; 83690; 83735; 84443; 84703; 85025; 86580; 86592; 86705; 86803; 87210; 87340; 87491; 87806; A4663; G0480; Q0163